=== PATIENT | male | born 1990 | race African-American/Black ===

== ENCOUNTER 2024-10-11 06:46 | Emergency (ER) | payer MEDICAID ==
[~2024-10-11] VITALS: Ht 180.3 cm; Wt 98.0 kg
[2024-10-11 07:04] VITALS: O2SAT 100
[2024-10-11] MEDS: KETOROLAC 15MG/ML VIAL IM ONE (09:01)
[2024-10-11] MEDS: ACETAMINOPHEN 325MG TABLET PO ONE (09:02)
[2024-10-11 09:05] VITALS: BP 121/73; PULSE 59; RESP 16; TEMP 36.8; O2SAT 100
== END 2024-10-11 09:01 | disposition home or self-care (01) ==
LOC: ER 06:46
DX: S82.51XA Displaced fracture of medial malleolus of right tibia, initial encounter for closed fracture (principal); X58.XXXA Exposure to other specified factors, initial encounter; Y93.67 Activity, basketball; Y92.89 Other specified places as the place of occurrence of the external cause; Y99.8 Other external cause status
CPT/HCPCS: 99283; 29515; 73610; 96372; J1885